=== PATIENT | male | born 1975 | race Caucasian/White ===

== ENCOUNTER 2016-10-12 21:00 | Emergency (ER) | payer SELFPAY ==
[~2016-10-12] VITALS: Ht 177.8 cm; Wt 122.5 kg
[~2016-10-12 21:00] MED LIST: ALBU2.5V14 NEB; BUDE10.2 IH; CLIN-44 PO; HYDR-2666 PO; HYDR2TAB13 PO; IBUP200T43 PO; LEVO150T5 PO; ONDA4TAB7 PO; PANT40TA5 PO; PROAIR HFA8.5 GM IH; TAMS0.4C97 PO; TRAM-29 PO
[2016-10-12 21:07] VITALS: BP 128/80
--- NOTE | 2016-10-12 21:36 | PHYS DOC ---
Past Medical History Past Medical History: GERD, Hypothyroid, Kidney Stone, TIA Additional Past Medical Histor: enlarged prostate,obesity, Past Surgical History: Tonsillectomy, Other Additional Past Surgical Histo: RIGHT KNEE SURGERY, TUMORS REMOVED FROM LEFT BICEP, LITHOTRIPSY Alcohol Use: Occasionally Drug Use: None Adult General Chief Complaint Chief Complaint: HEADACHE HPI HPI 41-year-old male presenting to the emergency department today with mild hyperglycemia. The patient is not diabetic and does not take medications for diabetes. He has his 's glucometer at home and checked his blood sugar. His blood sugar was 200 approximately 1/2-2 hours postprandially. Onset today. Location blood area duration intermittent. No alleviating factors. Review of systems is negative for chest pain shortness of breath nausea vomiting fevers chills. He does have a mild intermittent headache is similar to his previous headaches. He denies any other symptoms. All other review of systems is negative unless otherwise noted in history of present illness. Review of Systems Review of Systems SEE ABOVE. Allergies Allergies Allergies Coded Allergies Type Severity Reaction Last Updated Verified Sulfa (Sulfonamide Antibiotics) Allergy Intermediate "I turn bright red and burn all over" 01/12/15 Yes Physical Exam Physical Exam Constitutional: Well developed, well nourished, no acute distress, non-toxic appearance. HENT: Normocephalic, atraumatic, bilateral external ears normal, oropharynx moist, no oral exudates, nose normal. [] Eyes: PERRLA, EOMI, conjunctiva normal, no discharge. Neck: Normal range of motion, no tenderness, supple, no stridor. [] Cardiovascular:Heart rate regular rhythm, no murmur Lungs & Thorax: Bilateral breath sounds clear to auscultation Abdomen: Bowel sounds normal, soft, no tenderness, no masses, no pulsatile masses. Skin: Warm, dry, no erythema, no rash. [] Back: No tenderness, no CVA tenderness. [] Extremities: No tenderness, no cyanosis, no clubbing, ROM intact, no edema. Neurologic: Alert and oriented X 3, normal motor function, normal sensory function, no focal deficits noted. [] Psychologic: Affect normal, judgement normal, mood normal. Current Patient Data Vital Signs Vital Signs Date Time Temp Pulse Resp B/P Pulse Ox O2 Delivery O2 Flow Rate FiO2 10/12/16 21:07 97.7 98 18 128/80 99 Room Air 97.7 EKG EKG [] Radiology/Procedures Radiology/Procedures [] Course & Med Decision Making Course & Med Decision Making Pertinent Labs and Imaging studies reviewed. (See chart for details) [] 41-year-old male presenting with hyperglycemia. Vital signs afebrile mild tachycardia. Otherwise unremarkable. Pertinent physical exam normal physical exam. Nontender abdomen. Clear lungs. No focal neuro deficits. Blood glucose here is 140. If the patient's blood glucose was over 200 this to be consistent with a diagnosis of diabetes mellitus. I will refer the patient to our primary care physicians for chronic management of diabetes mellitus and continued evaluation workup and care over the next day or 2. Dragon Disclaimer Dragon Disclaimer This electronic medical record was generated, in whole or in part, using a voice recognition dictation system. Departure Departure Impression: Primary Impression: Elevated blood sugar Disposition: HOME, SELF-CARE Condition: STABLE Referrals: TAWANNA PALACIOS MD (PCP) JOSE RAMON REID MD Patient Instructions: Monitoring for Diabetes Additional Instructions: Thank you for allowing us to participate in your care today. Followup with your primary care physician in 1-2 days if your symptoms do not improve. If you do not have a primary care provider you can ask for a list of our primary care providers. Return to the emergency department you have any new or concerning findings. This should be evaluated by the primary care physician and any necessary consulting services for continued management within a few days after discharge. Return to emergency room if you have any new or concerning symptoms including but not limited to fever, chills, nausea, vomiting, intractable pain, any new rashes, chest pain, shortness of air, uncontrolled bleeding, difficulty breathing, and/or vision loss. GABE SANDERSON MD Oct 12, 2016 21:36
== END 2016-10-12 21:50 | disposition home or self-care (01) ==
LOC: ER 21:00
DX: R73.9 Hyperglycemia, unspecified (principal); R51 Headache; K21.9 Gastro-esophageal reflux disease without esophagitis; E03.9 Hypothyroidism, unspecified; E66.9 Obesity, unspecified; Z87.442 Personal history of urinary calculi; Z86.73 Personal history of transient ischemic attack (TIA), and cerebral infarction without residual deficits; Z68.38 Body mass index [BMI] 38.0-38.9, adult; Z88.2 Allergy status to sulfonamides
CPT/HCPCS: 82947; 99282

== ENCOUNTER 2017-02-24 12:34 | Emergency (ER) | payer SELFPAY ==
[~2017-02-24] VITALS: Ht 177.8 cm; Wt 122.5 kg
[~2017-02-24 12:34] MED LIST changes: -CLIN-44 PO; +CLIN150C14 PO; -HYDR-2666 PO; +HYDR-2758 PO; -HYDR2TAB13 PO; +HYDR2TAB31 PO; -TRAM-29 PO; +TRAM-48 PO
[2017-02-24] MEDS ORDERED: IV NORMAL SALINE 1000ML BAG 1,000 ML IV ONE (14:00)
[2017-02-24] MEDS ORDERED: BACITRACIN/POLYMYXIN B TOPICAL OINT 15GM TUBE. TP ONE (14:00)
--- NOTE | 2017-02-24 14:10 | RAD ---
2 view CXR: Clinical indications: Chest tightness today. Comparison: May 26, 2016. Findings: No acute lung infiltrate or pleural effusion or pulmonary edema or lung mass or pneumothorax is seen. The heart size, pulmonary vasculature, mediastinum and both duarte are unremarkable. The osseous structures appear intact. Impression: No acute radiographic abnormality is seen.
--- NOTE | 2017-02-24 14:30 | ED.ADGEN ---
Past Medical History Past Medical History: Diabetes-Type II, GERD, Hypothyroid, Kidney Stone, TIA Additional Past Medical Histor: enlarged prostate,obesity, Past Surgical History: Tonsillectomy, Other Additional Past Surgical Histo: RIGHT KNEE SURGERY, TUMORS REMOVED FROM LEFT BICEP, LITHOTRIPSY, Alcohol Use: Heavy Drug Use: Marijuana, Methamphetamine Adult General Chief Complaint Chief Complaint: OTHER COMPLAINTS HPI HPI Patient is a 42 year old man, history of type 2 diabetes mellitus, hypothyroidism, obesity, who presents to the emergency department with complaint of "worms crawling in my skin". Patient noted have excoriations across his forearms and chest, states he was using meth over the past several days has not slept in 2 days, has been scratching since that time. Patient is complaining of some tightness in his chest, states it feels like they're "are worms or something squeezing in there". He denies any nausea or vomiting, any focal weakness, numbness, tingling, other ingestions or exposures. States his tetanus is up-to-date. Tissue sugars generally run in the 120s. Review of Systems Review of Systems Constitutional: Denies fever or chills. [] "Feels like worms are in my skin". Eyes: Denies change in visual acuity. [] HENT: Denies nasal congestion or sore throat. [] Respiratory: Denies cough or shortness of breath. [] Cardiovascular: Denies chest pain or edema. [] GI: Denies abdominal pain, nausea, vomiting, bloody stools or diarrhea. [] : Denies dysuria. [] Musculoskeletal: Denies back pain or joint pain. [] Integument: Denies rash. [] Neurologic: Denies headache, focal weakness or sensory changes. [] Endocrine: Denies polyuria or polydipsia. [] Lymphatic: Denies swollen glands. [] Psychiatric: Denies depression or anxiety. [] Current Medications Current Medications Current Medications Medications (Trade) Dose Ordered Sig/Agustín Start Time Stop Time Status Last Admin Dose Admin Bacitracin/ Polymyxin B Sulfate (Polysporin) 1 katie 1X ONCE 02/24/17 14:00 02/24/17 14:01 DC 02/24/17 16:13 1 KATIE Cephalexin HCl (Keflex) 500 mg 1X ONCE 02/24/17 17:00 02/24/17 17:01 DC 02/24/17 16:52 500 MG Sodium Chloride 1,000 ml @ 1,000 mls/hr 1X ONCE 02/24/17 14:00 02/24/17 14:59 DC 02/24/17 14:29 1,000 MLS/HR Allergies Allergies Allergies Coded Allergies Type Severity Reaction Last Updated Verified Sulfa (Sulfonamide Antibiotics) Allergy Intermediate "I turn bright red and burn all over" 01/12/15 Yes Physical Exam Physical Exam Constitutional: Well developed, well nourished, slightly flushed in appearance, non-toxic appearance. [] HENT: Normocephalic, atraumatic, bilateral external ears normal, oropharynx moist, no oral exudates, nose normal. [] Eyes: PERRLA, EOMI, conjunctiva normal, no discharge. [] Neck: Normal range of motion, no tenderness, supple, no stridor. [] Cardiovascular:Heart rate regular rhythm, no murmur, S1, S2, no rubs or gallops. Lungs & Thorax: Bilateral breath sounds clear to auscultation , no wheezing, rhonchi, rales. No chest wall crepitus or tenderness. Patient with excoriations noted across his chest, no lesions are normality identified. [] Abdomen: Bowel sounds normal, soft, no tenderness, no masses, no pulsatile masses. [] Skin: Warm, dry, no erythema, no rash. Patient with excoriations across the forearm, chest and legs, which are self induced, patient is picking and scratching at the area during my examination. [] Back: No tenderness, no CVA tenderness. [] Extremities: No tenderness, no cyanosis, no clubbing, ROM intact, no edema. Negative Homans sign. [] Neurologic: Alert and oriented X 3, normal motor function, normal sensory function, no focal deficits noted. [] Psychologic: Affect normal, judgement normal, mood normal. [] Current Patient Data Vital Signs Vital Signs Date Time Temp Pulse Resp B/P (MAP) Pulse Ox O2 Delivery O2 Flow Rate FiO2 02/24/17 17:07 75 20 167/100 (122) 98 Room Air 02/24/17 13:01 97.8 97.8 Lab Values Laboratory Tests Test 02/24/17 14:25 02/24/17 15:05 White Blood Count 12.5 x10^3/uL (4.0-11.0) H Red Blood Count 4.42 x10^6/uL (4.30-5.70) Hemoglobin 14.8 g/dL (13.0-17.5) Hematocrit 43.3 % (39.0-53.0) Mean Corpuscular Volume 98 fL (79-100) Mean Corpuscular Hemoglobin 34 pg (25-35) Mean Corpuscular Hemoglobin Concent 34 g/dL (31-37) Red Cell Distribution Width 12.5 % (11.5-14.5) Platelet Count 232 x10^3/uL (140-400) Neutrophils (%) (Auto) 73 % (31-73) Lymphocytes (%) (Auto) 18 % (24-48) L Monocytes (%) (Auto) 7 % (0-9) Eosinophils (%) (Auto) 1 % (0-3) Basophils (%) (Auto) 1 % (0-3) Neutrophils # (Auto) 9.1 x10^3uL (1.8-7.7) H Lymphocytes # (Auto) 2.3 x10^3/uL (1.0-4.8) Monocytes # (Auto) 0.9 x10^3/uL (0.0-1.1) Eosinophils # (Auto) 0.2 x10^3/uL (0.0-0.7) Basophils # (Auto) 0.1 x10^3/uL (0.0-0.2) Sodium Level 143 mmol/L (136-145) Potassium Level 3.3 mmol/L (3.5-5.1) L Chloride Level 106 mmol/L (98-107) Carbon Dioxide Level 30 mmol/L (21-32) Anion Gap 7 (6-14) Blood Urea Nitrogen 10 mg/dL (8-26) Creatinine 0.9 mg/dL (0.7-1.3) Estimated GFR (Cockcroft-Gault) 92.1 BUN/Creatinine Ratio 11 (6-20) Glucose Level 87 mg/dL (70-99) Calcium Level 8.7 mg/dL (8.5-10.1) Total Bilirubin 0.8 mg/dL (0.2-1.0) Aspartate Amino Transferase (AST) 21 U/L (15-37) Alanine Aminotransferase (ALT) 40 U/L (16-63) Alkaline Phosphatase 85 U/L (46-116) Myoglobin 79 ng/mL (16-96) Troponin I Quantitative < 0.017 ng/mL (0.000-0.055) Total Protein 7.3 g/dL (6.4-8.2) Albumin 3.6 g/dL (3.4-5.0) Albumin/Globulin Ratio 1.0 (1.0-1.7) Urine Collection Type Unknown Urine Color Dk yellow Urine Clarity Clear Urine pH 5.5 Urine Specific [place] 1.025 Urine Protein Negative mg/dL (NEG-TRACE) Urine Glucose (UA) Negative mg/dL (NEG) Urine Ketones (Stick) Negative mg/dL (NEG) Urine Blood Negative (NEG) Urine Nitrite Negative (NEG) Urine Bilirubin Negative (NEG) Urine Urobilinogen Dipstick 0.2 mg/dL (0.2 mg/dL) Urine Leukocyte Esterase Negative (NEG) Urine RBC 0 /HPF (0-2) Urine WBC Occ /HPF (0-4) Urine Squamous Epithelial Cells Occ /LPF Urine Bacteria 0 /HPF (0-FEW) Urine Mucus Marked /LPF Urine Sperm Present /HPF Urine Opiates Screen Neg (NEG) Urine Methadone Screen Neg (NEG) Urine Barbiturates Neg (NEG) Urine Phencyclidine Screen Neg (NEG) Urine Amphetamine/Methamphetamine Pos (NEG) Urine Benzodiazepines Screen Neg (NEG) Urine Cocaine Screen Neg (NEG) Urine Cannabinoids Screen Pos (NEG) Urine Ethyl Alcohol Neg (NEG) Laboratory Tests 02/24/17 14:25 Laboratory Tests 02/24/17 14:25 EKG EKG [] Radiology/Procedures Radiology/Procedures [][facility] [address] [place] [address] IMAGING REPORT Signed PATIENT: SOCRATES GARDNER ACCOUNT: [id number] : 1975 LOCATION: ER AGE: 42 SEX: M EXAM STATUS: REG ER ORD. PHYSICIAN: VERENICE ROMERO DO REASON: chest tightness PROCEDURE: CHEST PA & LATERAL 2 view CXR: Clinical indications: Chest tightness today. Comparison: May 26, 2016. Findings: No acute lung infiltrate or pleural effusion or pulmonary edema or lung mass or pneumothorax is seen. The heart size, pulmonary vasculature, mediastinum and both duarte are unremarkable. The osseous structures appear intact. Impression: No acute radiographic abnormality is seen. DICTATED and SIGNED BY: FAZAL PERRIN MD DATE: 02/24/17 140 CC: VERENICE ROMERO DO; TAWANNA PALACIOS MD ~ Course & Med Decision Making Course & Med Decision Making Pertinent Labs and Imaging studies reviewed. (See chart for details) Discussed with patient that his skin findings are consistent with formication, due to methamphetamine abuse. As stated, patient states he has not slept for 2 days due to methamphetamine use. There is no evidence of foreign body or of infestation. Patient without evidence of abscess formation or induration, patient with multiple excoriations up and down his left arm, across his chest, with some granulation tissue that has formed. Patient has been scratching was over the past 2 days. Laboratory studies obtained did not reveal any acutely concerning findings, and reevaluation patient states he is feeling better, has been sleeping in the emergency department, IV fluids infused, he does have patient's at bedside, and vital signs are within normal limits. Ill effects of methamphetamine and other illicit substance abuse were discussed at bedside with patient, he does not have evidence of infection at this time, however as I am concerned he will continue to scratch and pick at his skin, he was written for Keflex to be taken 4 times daily for the next 4 days, first dose given in the ED without issue, given clear and detailed return instructions and precautions, and also given dressing materials to take home. Patient discharged home in stable condition with his with plan and precautions as above. Dragon Disclaimer Dragon Disclaimer This electronic medical record was generated, in whole or in part, using a voice recognition dictation system. Departure Impression: Primary Impression: Formication Additional Impressions: Amphetamine abuse Skin excoriation Disposition: HOME, SELF-CARE Condition: IMPROVED Scripts Cephalexin (KEFLEX) 500 Mg Capsule 500 MG PO QID, #16 CAP Prov: VERENICE ROMERO DO 02/24/17 Problem Qualifiers VERENICE ROMERO DO Feb 24, 2017 14:30
[2017-02-24 14:36] LABS: BASO # 0.1 x10^3/uL (0.0-0.2); BASO % 1 % (0-3); EOS % 1 % (0-3); HEMATOCRIT 43.3 % (39.0-53.0); HEMOGLOBIN 14.8 g/dL (13.0-17.5); LYMPH # 2.3 x10^3/uL (1.0-4.8); LYMPH % 18 % (24-48); MEAN CORPUSCULAR HEMOGLOBIN 34 pg (25-35); MEAN CORPUSCULAR HGB CONC 34 g/dL (31-37); MEAN CORPUSCULAR VOLUME 98 fL (79-100); MONO % 7 % (0-9); NEUT % 73 % (31-73); PLATELET COUNT 232 x10^3/uL (140-400); RED BLOOD COUNT 4.42 x10^6/uL (4.30-5.70); RED CELL DISTRIBUTION WIDTH 12.5 % (11.5-14.5); WHITE BLOOD COUNT 12.5 x10^3/uL (4.0-11.0)
[2017-02-24 15:16] LABS: BILIRUBIN,URINE NEGATIVE (NEG); GLUCOSE,URINE NEGATIVE (NEG); NITRITE,URINE NEGATIVE (NEG); PH,URINE 5.5; PROTEIN,URINE NEGATIVE (NEG-TRACE); UROBILINOGEN,URINE 0.2 mg/dL (0.2 mg/dL)
[2017-02-24 15:27] LABS: BARBITURATES NEG (NEG); BENZODIAZEPINES NEG (NEG); CANNABINOIDS POS (NEG); COCAINE NEG (NEG); METHADONE NEG (NEG); OPIATES NEG (NEG); PHENCYCLIDINE NEG (NEG)
[2017-02-24 15:28] LABS: BACTERIA,URINE 0 /HPF (0-FEW); RBC,URINE 0 /HPF (0-2); SPERM,URINE PRESENT /HPF; SQUAMOUS EPITHELIAL CELL,UR OCC /LPF; WBC,URINE OCC /HPF (0-4)
[2017-02-24 16:10] LABS: CALCIUM 8.7 mg/dL (8.5-10.1); CREATININE 0.9 mg/dL (0.7-1.3); GFR 92.1; POTASSIUM 3.3 mmol/L (3.5-5.1)
[2017-02-24 16:21] LABS: ALBUMIN 3.6 g/dL (3.4-5.0); TOTAL BILIRUBIN 0.8 mg/dL (0.2-1.0); TOTAL PROTEIN 7.3 g/dL (6.4-8.2)
[2017-02-24] MEDS ORDERED: CEPH-264 PO (16:58)
[2017-02-24] MEDS ORDERED: CEPHALEXIN 250 MG CAPSULE. PO ONE (17:00)
[2017-02-24 17:07] VITALS: BP 167/100
--- NOTE | 2017-02-25 09:18 | EKG ---
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
== END 2017-02-24 17:07 | disposition home or self-care (01) ==
LOC: ER 12:34
DX: R20.2 Paresthesia of skin (principal); F42.4 Excoriation (skin-picking) disorder; F12.10 Cannabis abuse, uncomplicated; R07.89 Other chest pain; E03.9 Hypothyroidism, unspecified; E11.9 Type 2 diabetes mellitus without complications; F15.10 Other stimulant abuse, uncomplicated; K21.9 Gastro-esophageal reflux disease without esophagitis; N40.0 Benign prostatic hyperplasia without lower urinary tract symptoms; Z86.73 Personal history of transient ischemic attack (TIA), and cerebral infarction without residual deficits; Z87.442 Personal history of urinary calculi
CPT/HCPCS: 36415; 71020; 80053; 80307; 81001; 83874; 84484; 85027; 93005; 96360; 99285; J7030; G0479

== ENCOUNTER 2019-04-26 22:50 | Emergency (ER) | payer SELFPAY ==
[~2019-04-26] VITALS: Ht 177.8 cm; Wt 122.5 kg
[~2019-04-26 22:50] MED LIST changes: +ALBU2.5V8 IH; +CEPH-264 PO; -HYDR-2758 PO; +HYDR-2761 PO; -IBUP200T43 PO; +IBUP200T44 PO; -PANT40TA5 PO; +PANT40TA77 PO; -PROAIR HFA8.5 GM IH
--- NOTE | 2019-04-26 23:06 | PHYS DOC ---
Past Medical History Past Medical History: Diabetes-Type II, GERD, Hypothyroid, Kidney Stone, TIA Additional Past Medical Histor: enlarged prostate,obesity, Past Surgical History: Tonsillectomy, Other Additional Past Surgical Histo: RIGHT KNEE SURGERY, TUMORS REMOVED FROM LEFT BICEP, LITHOTRIPSY, Alcohol Use: Heavy Drug Use: Marijuana, Methamphetamine Adult General Chief Complaint Chief Complaint: HYPERTENSION HPI HPI Patient is a 44 year old male who presents with states he just got home and decided to his blood pressure and it was 170s over 100s. Patient states he has known high blood pressure but does not take medication for it. Patient denies any pain or symptoms. Patient's blood pressure in the ED is 140s over 80s. Review of Systems Review of Systems Cardiovascular: High blood pressure All other systems were reviewed and found to be within normal limits, except as documented in this note. Allergies Allergies Allergies Coded Allergies Type Severity Reaction Last Updated Verified Sulfa (Sulfonamide Antibiotics) Allergy Intermediate "I turn bright red and burn all over" 01/12/15 Yes Physical Exam Physical Exam Constitutional: Well developed, well nourished, no acute distress, non-toxic appearance. [] HENT: Normocephalic, atraumatic, bilateral external ears normal, oropharynx moist, no oral exudates, nose normal. [] Eyes: PERRLA, EOMI, conjunctiva normal, no discharge. [] Neck: Normal range of motion, no tenderness, supple, no stridor. [] Cardiovascular:Heart rate regular rhythm, no murmur [] Lungs & Thorax: Bilateral breath sounds clear to auscultation [] Skin: Warm, dry, no erythema, no rash. [] Extremities: No tenderness, no cyanosis, no clubbing, ROM intact, no edema. [] Neurologic: Alert and oriented X 3, normal motor function, normal sensory function, no focal deficits noted. [] Psychologic: Affect normal, judgement normal, mood normal. Normal physical exam[] Current Patient Data Vital Signs Vital Signs Date Time Temp Pulse Resp B/P (MAP) Pulse Ox O2 Delivery O2 Flow Rate FiO2 04/26/19 23:21 97.8 82 20 148/90 (109) 98 Room Air 97.8 EKG EKG Sinus Rhythm and no STEMI[] Interpretation Time: [address] Francis Radiology/Procedures Radiology/Procedures [] Impressions: [facility] [address] [place] [address] IMAGING REPORT Signed PATIENT: SOCRATES GARDNER ACCOUNT: [id number] : 1975 LOCATION: ER AGE: 44 SEX: M EXAM STATUS: REG ER ORD. PHYSICIAN: LOPEZ AGUILAR APRN REASON: Hypertension PROCEDURE: PORTABLE CHEST 1V PORTABLE CHEST 1V 04/26/2019 11:00 PM INDICATION: Hypertension COMPARISON: 02/24/2017 TECHNIQUE: Portable frontal view of the chest is provided. FINDINGS: The cardiomediastinal silhouette is similar in appearance. Lungs are clear. There are no significant pleural effusions. There is no pulmonary vascular congestion. No pneumothorax. IMPRESSION: There is no acute cardiopulmonary process. Electronically signed by: Jonathan Huerta MD (04/26/2019 11:21 PM) [id number] DICTATED and SIGNED BY: JONATHAN HEURTA MD DATE: 04/26/192320 Course & Med Decision Making Course & Med Decision Making Patient is a 44 year old male who presents with states he just got home and decided to his blood pressure and it was 170s over 100s. Patient states he has known high blood pressure but does not take medication for it. Patient denies any pain or symptoms. Patient's blood pressure in the ED is 140s over 80s. Alert and oriented. Speaks in full clear sentences. Ambulatory with a steady gait. Patient denies any pain. Patient denies chest pain, shortness of air, headache, dizziness, syncope, numbness or tingling, weakness, abdominal pain, nausea, vomiting. Lungs are clear to auscultation all lobes. Patient states that he smokes marijuana and does meth. Patient states the last time he did meth was about 3 weeks ago. Patient states he also smokes cigars. Patient states he has a history of diabetes, GERD, hypothyroidism, TIA, kidney stone, marijuana use, methamphetamine use, alcohol use. PERRLA. Skin pink warm and dry. No extremity edema. Patient states that over the last 2 years off-and-on he will have exertional shortness of breath of which his doctors know about. Patient remains stable and not in a hypertensive emergency. Patient has no symptoms. Nursing staff is stuck the patient several times to try to get blood work able to get lab work. Patient states does not want to be stuck again. Since patient remains asymptomatic and has not had a hypertensive emergency in the ED patient will follow-up with his primary care provider. I have consulted with Dr Francis on this patient. Dragon Disclaimer Dragon Disclaimer This electronic medical record was generated, in whole or in part, using a voice recognition dictation system. Departure Departure Impression: Primary Impression: Hypertension Disposition: 01 HOME, SELF-CARE Condition: STABLE Referrals: TAWANNA PALACIOS MD (PCP) Patient Instructions: Hypertension Additional Instructions: FOLLOW UP WITH PRIMARY CARE SOON POSSIBLE. IF YOU BEGIN HAVING CHEST PAIN OR SOA RETURN TO THE ED. Problem Qualifiers Primary Impression: Hypertension Hypertension type: essential hypertension Qualified Codes: I10 - Essential (primary) hypertension LOPEZ AGUILAR APRN Apr 26, 2019 23:06
--- NOTE | 2019-04-26 23:24 | RAD ---
PORTABLE CHEST 1V 04/26/2019 11:00 PM INDICATION: Hypertension COMPARISON: 02/24/2017 TECHNIQUE: Portable frontal view of the chest is provided. FINDINGS: The cardiomediastinal silhouette is similar in appearance. Lungs are clear. There are no significant pleural effusions. There is no pulmonary vascular congestion. No pneumothorax. IMPRESSION: There is no acute cardiopulmonary process. Electronically signed by: Yesica Arriaga MD (04/26/2019 11:21 PM) [id number]
[2019-04-27] VITALS: BP 150/60
--- NOTE | 2019-04-27 11:31 | EKG ---
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
== END 2019-04-27 00:19 | disposition home or self-care (01) ==
LOC: ER 22:50
DX: I10 Essential (primary) hypertension (principal); E11.9 Type 2 diabetes mellitus without complications; K21.9 Gastro-esophageal reflux disease without esophagitis; E03.9 Hypothyroidism, unspecified; F10.20 Alcohol dependence, uncomplicated; Y90.9 Presence of alcohol in blood, level not specified; E66.9 Obesity, unspecified; Z68.38 Body mass index [BMI] 38.0-38.9, adult; Z87.442 Personal history of urinary calculi; Z90.89 Acquired absence of other organs; Z88.2 Allergy status to sulfonamides
CPT/HCPCS: 71045; 93005; 99284

== ENCOUNTER 2019-06-27 10:07 | Emergency (ER) | payer SELFPAY ==
[~2019-06-27] VITALS: Ht 175.3 cm; Wt 136.1 kg
--- NOTE | 2019-06-27 10:28 | PHYS DOC ---
Past Medical History Past Medical History: Diabetes-Type II, GERD, Hypothyroid, Kidney Stone, Schizophrenia, TIA Additional Past Medical Histor: enlarged prostate,obesity, (NICKY ROBERTSON APRN) Past Surgical History: Tonsillectomy, Other Additional Past Surgical Histo: RIGHT KNEE SURGERY, TUMORS REMOVED FROM LEFT BICEP, LITHOTRIPSY, (NICKY ROBERTSON APRN) Alcohol Use: Heavy Drug Use: Marijuana, Methamphetamine (NICKY ROBERTSON APRN) Attending Signature I have participated in the care of this patient and I have reviewed and agree with all pertinent clinical information above including history, exam, and recommendations. (RADHA BLANKENSHIP MD) Adult General Chief Complaint Chief Complaint: LACERATION/AVULSION HPI HPI Patient is a 44 year old male who presents to the emergency department with complaints of a laceration to his left chest. Patient states he was trying to kill a bug with a knife when he accidentally fell forward and stabbed himself in the chest. Patient denies any shortness of breath, palpitations, suicidal ideations, or hemoptysis. He denies any pain at this time. Patient is unsure when his last tetanus shot was. (NICKY ROBERTSON APRN) Review of Systems Review of Systems Constitutional: Denies fever or chills [] Eyes: Denies redness, or eye pain [] HENT: Denies nasal congestion or sore throat [] Respiratory: Denies cough or shortness of breath [] Cardiovascular: No additional information not addressed in HPI [] GI: Denies abdominal pain, nausea, vomiting, or diarrhea [] Musculoskeletal: Denies back pain or joint pain [] Integument: see HPI Neurologic: Denies headache Complete systems were reviewed and found to be within normal limits, except as documented in this note. (NICKY ROBERTSON APRN) Current Medications Current Medications Current Medications Medications (Trade) Dose Ordered Sig/Agustín Start Time Stop Time Status Last Admin Dose Admin Diphtheria/ Tetanus/Acell Pertussis (Boostrix) 0.5 ml ONCE ONCE 06/27/19 10:30 06/27/19 10:31 DC 06/27/19 10:49 0.5 ML Lidocaine HCl (Xylocaine-Mpf 1% 2ml Vial) 4 ml 1X ONCE 06/27/19 10:30 06/27/19 10:31 DC 06/27/19 10:48 4 ML Neomycin/ Polymyxin/ Bacitracin (Triple Antibiotic Ointment) 1 pkt 1X ONCE 06/27/19 10:30 06/27/19 10:31 DC 06/27/19 10:49 1 PKT (RADHA BLANKENSHIP MD) Allergies Allergies Allergies Coded Allergies Type Severity Reaction Last Updated Verified Sulfa (Sulfonamide Antibiotics) Allergy Intermediate "I turn bright red and burn all over" 01/12/15 Yes (RADHA BLANKENSHIP MD) Physical Exam Physical Exam Constitutional: Well developed, well nourished, no acute distress, non-toxic appearance, obese. [] HENT: Normocephalic, atraumatic, bilateral external ears normal, nose normal. [] Eyes: PERRLA, EOMI, conjunctiva normal, no discharge. [] Neck: Normal range of motion, no tenderness, supple, no stridor. [] Cardiovascular:Heart rate regular rhythm, no murmur [] Lungs & Thorax: Bilateral breath sounds clear to auscultation, regular rate, no retractions [] Skin: Warm, dry, no erythema, no rash; 1 cm laceration noted to left chest, no active bleeding. [] Back: No tenderness Extremities: No tenderness, no cyanosis, no clubbing, ROM intact, no edema. [] Neurologic: Alert and oriented X 3, no focal deficits noted. [] Psychologic: Affect normal, judgement normal, mood normal. [] (NICKY ROBERTSON APRN) Current Patient Data Vital Signs Vital Signs Date Time Temp Pulse Resp B/P (MAP) Pulse Ox O2 Delivery O2 Flow Rate FiO2 06/27/19 11:30 86 18 133/80 (97) 97 Room Air 06/27/19 10:14 97.9 97.9 (RADHA BLANKENSHIP MD) EKG EKG [] (NICKY ROBERTSON APRN) Radiology/Procedures Radiology/Procedures PROCEDURE: CHEST AP ONLY CHEST AP ONLY Clinical Indication: Left chest laceration Comparison: 04/26/2019 Portable Chest X-ray Exam. Findings: Portable upright frontal view chest was obtained. The cardiomediastinal silhouette is normal. Lungs are clear. There is no pneumothorax. No pleural effusion is appreciated. No acute bone abnormality. IMPRESSION: No acute cardiopulmonary process. Laceration Repair by me: Anesthesia: 1% lidocaine locally Location: left chest Tendon/Joint/Nerves: No injury Foreign body: None detected after copious irrigation and exploration with 100 ml of NS Technique: 2 Simple Interrupted Sutures with 4-0 Ethilon Complexity: No subcutaneous sutures/mucosal repair/edge excision Post Closure Length: 2 cm The wound was explored with a sterile cotton swab it was approximately 2 cm deep Patient's bleeding was easily controlled in the department and there is no indication of anemia. No evidence of compartment syndrome, neurologic injury, vascular injury, open joint, tendon laceration, or foreign body. Patient is appropriate for outpatient follow up. Scar minimization instructions given. [] (NICKY ROBERTSON APRN) Course & Med Decision Making Course & Med Decision Making Pertinent Labs and Imaging studies reviewed. (See chart for details) [] (NICKY ROBERTSON APRN) Dragon Disclaimer Dragon Disclaimer This electronic medical record was generated, in whole or in part, using a voice recognition dictation system. (NICKY ROBERTSON APRN) Departure Departure Impression: Primary Impression: Laceration of left chest wall Disposition: HOME, SELF-CARE Condition: STABLE Referrals: NO PCP (PCP) Patient Instructions: Laceration Care, Adult, [id number], VIS, Tetanus, Diphtheria (Td); Tetanus, Diphtheria, Pertussis (Tdap) - CDC Additional Instructions: Keep the area clean and dry. You may take Tylenol or ibuprofen as needed for pain. Keep the dressing that was placed today on for 24 hours then change the dressing twice a day and apply antibiotic ointment to the area. Follow-up with your primary care doctor, or return to the emergency room in 10-14 days to have the sutures removed, sooner if you develop signs of infection including: redness, warmth, drainage, or a fever. NICKY ROBERTSON APRN Jun 27, 2019 10:28 RADHA BLANKENSHIP MD Jun 28, 2019 18:59
[2019-06-27] MEDS ORDERED: NEOMY/BACITR/POLYMYXIN OINT PACKET. TP ONE (10:30)
[2019-06-27] MEDS ORDERED: LIDOCAINE 1% PF 2 ML VIAL. INJ ONE (10:30)
[2019-06-27] MEDS ORDERED: DIPHTH,PERTUSS(ACELL),TET TOX 0.5 ML DISP.SYRIN. VAX IM ONE (10:30)
[2019-06-27 11:30] VITALS: BP 133/80
== END 2019-06-27 12:12 | disposition home or self-care (01) ==
LOC: ER 10:07
DX: S21.112A Laceration without foreign body of left front wall of thorax without penetration into thoracic cavity, initial encounter (principal); E11.9 Type 2 diabetes mellitus without complications; K21.9 Gastro-esophageal reflux disease without esophagitis; E03.9 Hypothyroidism, unspecified; F20.9 Schizophrenia, unspecified; Z86.73 Personal history of transient ischemic attack (TIA), and cerebral infarction without residual deficits; E66.9 Obesity, unspecified; Z68.41 Body mass index [BMI] 40.0-44.9, adult; Z90.89 Acquired absence of other organs; Z98.890 Other specified postprocedural states; F10.20 Alcohol dependence, uncomplicated; F12.90 Cannabis use, unspecified, uncomplicated; Y90.9 Presence of alcohol in blood, level not specified; Z88.2 Allergy status to sulfonamides; W26.0XXA Contact with knife, initial encounter; Y93.89 Activity, other specified; Y92.89 Other specified places as the place of occurrence of the external cause; Y99.8 Other external cause status
CPT/HCPCS: 12001; 71045; 90471; 90715; 99283

== ENCOUNTER 2021-09-16 12:07 | Emergency (ER) | payer OTHER ==
[~2021-09-16] VITALS: Ht 177.8 cm; Wt 130.0 kg
[~2021-09-16 12:07] MED LIST changes: -CLIN150C14 PO; +CLIN150C16 PO
[2021-09-16 12:08] VITALS: BP 130/88
[2021-09-16] MEDS ORDERED: DIPHTH,PERTUSS(ACELL),TET TOX 0.5 ML DISP.SYRIN. VAX IM ONE (12:15)
[2021-09-16] MEDS ORDERED: LIDOCAINE 1%/EPI 1:100,000 20 ML VIAL. INJ ONE (12:15)
--- NOTE | 2021-09-16 12:35 | PHYS DOC ---
Past Medical History Past Medical History: Diabetes-Type II, GERD, Hypothyroid, Kidney Stone, Schizophrenia, TIA Additional Past Medical Histor: enlarged prostate,obesity, Past Surgical History: Tonsillectomy, Other Additional Past Surgical Histo: RIGHT KNEE SURGERY, TUMORS REMOVED FROM LEFT BICEP, LITHOTRIPSY, Smoking Status: Current Every Day Smoker Alcohol Use: Heavy Drug Use: Marijuana, Methamphetamine General Adult EDM: Chief Complaint: LACERATION/AVULSION HPI: HPI: Patient is a 46 year old male who presents with states he was at work and he was walking and slipped on ice and fell striking his left elbow which then caused a laceration to the elbow itself. Patient does not know when his last tetanus shot was. Rates his pain a 5 out of 10. Denies hitting his head, dizziness, chest pain, shortness of air, or tingling, focal weakness, joint weakness or other extremity pain or body pain. Patient has a history of meth use, GERD, hypothyroidism, kidney stones with lithotripsy, schizophrenia, TIA, diabetes, enlarged prostate, smoking, tonsillectomy. Review of Systems: Review of Systems: Constitutional: Denies fever or chills. [] Eyes: Denies change in visual acuity. [] HENT: Denies nasal congestion or sore throat. [] Respiratory: Denies cough or shortness of breath. [] Cardiovascular: Denies chest pain or edema. [] GI: Denies abdominal pain, nausea, vomiting, bloody stools or diarrhea. [] : Denies dysuria. [] Musculoskeletal: Denies back pain or joint pain. + Left elbow pain [] Integument: Denies rash. + Left elbow laceration Endocrine: Denies polyuria or polydipsia. [] Lymphatic: Denies swollen glands. [] Psychiatric: Denies depression or anxiety. [] Heart Score: C/O Chest Pain: No Current Medications: Current Medications Medications (Trade) Dose Ordered Sig/Agustín Start Time Stop Time Status Last Admin Dose Admin Diphtheria/ Tetanus/Acell Pertussis (Boostrix) 0.5 ml ONCE ONCE 09/16/21 12:15 09/16/21 12:21 DC Lidocaine/ Epinephrine (LIDOCAINE 1%-EPI 1:100,000 Multi-Dose) 20 ml 1X ONCE 09/16/21 12:15 09/16/21 12:21 DC Allergies: Allergies: Allergies Coded Allergies Type Severity Reaction Last Updated Verified Sulfa (Sulfonamide Antibiotics) Allergy Intermediate "I turn bright red and burn all over" 01/12/15 Yes Physical Exam: PE: Constitutional: Well developed, well nourished, no acute distress, non-toxic appearance. [] HENT: Normocephalic, atraumatic, bilateral external ears normal, oropharynx moist, no oral exudates, nose normal. [] Eyes: PERRLA, EOMI, conjunctiva normal, no discharge. [] Neck: Normal range of motion, no tenderness, supple, no stridor. [] Cardiovascular:Heart rate regular rhythm, no murmur [] Lungs & Thorax: Bilateral breath sounds clear to auscultation [] Abdomen: Bowel sounds normal, soft, no tenderness, no masses, no pulsatile masses. [] Skin: Warm, dry, no erythema, no rash. Left elbow laceration. [] Back: No tenderness, no CVA tenderness. [] Extremities: No tenderness, no cyanosis, no clubbing, ROM intact, no edema. [] Neurologic: Alert and oriented X 3, normal motor function, normal sensory function, no focal deficits noted. [] Psychologic: Affect normal, judgement normal, mood normal. [] Current Patient Data: Vital Signs: Vital Signs Date Time Temp Pulse Resp B/P (MAP) Pulse Ox O2 Delivery O2 Flow Rate FiO2 09/16/21 12:08 97.6 95 18 130/88 (102) 97 Room Air 97.6 EKG: EKG: [] Radiology/Procedures: Radiology/Procedures: [] Impression: [facility] [address] [place] [address] IMAGING REPORT Signed PATIENT: SOCRATES GARDNER ACCOUNT: [id number] : 1975 LOCATION: ER AGE: 46 SEX: M EXAM STATUS: PRE ER ORD. PHYSICIAN: LOPEZ AGUILAR APRN REASON: fall, hit elbow, laceration PROCEDURE: ELBOW LEFT 3V EXAM: Left elbow, 4 views. HISTORY: Fall. Laceration. Pain. COMPARISON: None. FINDINGS: 4 views of the left elbow are obtained. There is no acute fracture, dislocation or subluxation. There is a small benign osseous excrescence along the medial epicondyles. There is no elbow effusion. There is a soft tissue defect within the posterior proximal forearm. No foreign body is seen. IMPRESSION: Soft tissue defect within the posterior proximal forearm, consistent with a reported laceration. No fracture or foreign body is seen. Electronically signed by: Millie Hernandez MD (09/16/2021 1:04 PM) [id number] DICTATED and SIGNED BY: MILLIE HERNANDEZ MD DATE: 09/16/21 [id number] Course & Med Decision Making: Course & Med Decision Making Pertinent Labs and Imaging studies reviewed. (See chart for details) See HPI. Alert and oriented x4. Ambulatory steady gait. Speaks in full clear sentences. Full range of motion of the left elbow. No tenderness exam. No laxity to the joint. Radial pulse strong present. No tenderness to the extremity at all. No focal bony spinal tenderness. Full range of motion of his neck. Patient denies any other injuries from the fall. She was given tetanus shot in the ED. After laceration repair patient it is explained to the patient that he needs to try to keep the arm straight as possible. I will give him 2 days off from work. He is educated that he runs the risk of reopening his laceration due to bending at the elbow. Laceration repair Location: Left elbow. 3 inches Local anesthesia: Lidocaine with epi Interrupted sutures/Internal sutures: 9 sutures Nerve/ligament/muscle damage: None Cleaning and irrigation: Chlorhexidine and saline The appropriate timeout was taken. The area was prepped and draped in the usual sterile fashion. The wound was copiously irrigated with normal saline and chl orhexidine. Patient tolerated well without complication. Dressing was applied to the area follow-up education is given to observe for signs and symptoms of infection, bleeding and to follow-up promptly if these occur. Patient can return in 48 hours for a wound recheck. Sutures to be removed in 7 to 10 days. Dragon Disclaimer: Chiquita Disclaimer: This electronic medical record was generated, in whole or in part, using a voice recognition dictation system. Departure Departure Impression: Primary Impression: Laceration of elbow Qualified Codes: S51.012A - Laceration without foreign body of left elbow, initial encounter Disposition: HOME / SELF CARE / HOMELESS Condition: STABLE Referrals: NO PCP (PCP) Patient Instructions: Laceration Care, Adult, Sutured Wound Care Additional Instructions: Return in 10 days for suture removal. Try not to bend the extremity as the sutures could break through in your laceration can reopen. Watch for signs of infection such as redness, drainage. Keep it dry and clean. He can put antibiotic ointment over the area. Take the antibiotic as prescribed and with food. Scripts Cephalexin (KEFLEX) 500 Mg Capsule 1 CAP PO TID, #30 CAP Prov: LOPEZ AGUILAR APRN 09/16/21 LOPEZ AGUILAR APRN Sep 16, 2021 12:35
--- NOTE | 2021-09-16 13:06 | RAD ---
EXAM: Left elbow, 4 views. HISTORY: Fall. Laceration. Pain. COMPARISON: None. FINDINGS: 4 views of the left elbow are obtained. There is no acute fracture, dislocation or subluxat ion. There is a small benign osseous excrescence along the medial epicondyles. There is no elbow effu darren. There is a soft tissue defect within the posterior proximal forearm. No foreign body is seen. IMPRESSION: Soft tissue defect within the posterior proximal forearm, consistent with a reported lace ration. No fracture or foreign body is seen. Electronically signed by: Millie Hernandez MD (09/16/2021 1:04 PM) [id number]
[2021-09-16] MEDS ORDERED: CEPH500C PO (13:09)
== END 2021-09-16 14:05 | disposition home or self-care (01) ==
LOC: ER 12:07
DX: S51.012A Laceration without foreign body of left elbow, initial encounter (principal); E11.9 Type 2 diabetes mellitus without complications; K21.9 Gastro-esophageal reflux disease without esophagitis; E03.9 Hypothyroidism, unspecified; F20.9 Schizophrenia, unspecified; Z86.73 Personal history of transient ischemic attack (TIA), and cerebral infarction without residual deficits; F17.200 Nicotine dependence, unspecified, uncomplicated; Z88.2 Allergy status to sulfonamides; W00.0XXA Fall on same level due to ice and snow, initial encounter; Y92.89 Other specified places as the place of occurrence of the external cause; Y93.01 Activity, walking, marching and hiking; Y99.8 Other external cause status
CPT/HCPCS: 12015; 73080; 90471; 90715; 99283; J3490

== ENCOUNTER 2021-09-28 17:44 | Emergency (ER) | payer OTHER ==
[~2021-09-28] VITALS: Ht 177.8 cm; Wt 126.9 kg
[~2021-09-28 17:44] MED LIST changes: +CEPH500C PO
[2021-09-28 18:14] VITALS: BP 142/78
--- NOTE | 2021-09-28 18:44 | PHYS DOC ---
Past Medical History Past Medical History: Diabetes-Type II, GERD, Hypothyroid, Kidney Stone, Schizophrenia, TIA Additional Past Medical Histor: enlarged prostate,obesity, KIDNEY STONES Past Surgical History: Tonsillectomy, Other Additional Past Surgical Histo: RIGHT KNEE SURGERY, TUMORS REMOVED FROM LEFT BICEP, LITHOTRIPSY, Smoking Status: Current Every Day Smoker Alcohol Use: Heavy Drug Use: Marijuana, Methamphetamine General Adult EDM: Chief Complaint: SUTURE/STAPLE REMOVAL HPI: HPI: Patient is a 46-year-old male who presents to the ED today for suture removal from the left elbow, for sutures have been in for 12 days. Denies any issues with the wound healing Review of Systems: Review of Systems: Constitutional: Denies fever or chills. [] Musculoskeletal: Denies back pain or joint pain. [] Integument: Left olecranon with well approximated laceration site with 8 sutures, no signs of infection. Neurologic: Denies headache, focal weakness or sensory changes. [] Psychiatric: Denies depression or anxiety. [] Heart Score: C/O Chest Pain: N/A Risk Factors: Risk Factors: DM, Current or recent (<one month) smoker, HTN, HLP, family history of CAD, obesity. Risk Scores: Score 0 - 3: 2.5% MACE over next 6 weeks - Discharge Home Score 4 - 6: 20.3% MACE over next 6 weeks - Admit for Clinical Observation Score 7 - 10: 72.7% MACE over next 6 weeks - Early Invasive Strategies Allergies: Allergies: Allergies Coded Allergies Type Severity Reaction Last Updated Verified Sulfa (Sulfonamide Antibiotics) Allergy Intermediate "I turn bright red and burn all over" 01/12/15 Yes Physical Exam: PE: Constitutional: Well developed, well nourished, no acute distress, non-toxic appearance. [] HENT: Normocephalic, atraumatic, bilateral external ears normal, oropharynx moist, no oral exudates, nose normal. [] Eyes: PERRLA, EOMI, conjunctiva normal, no discharge. [] Neck: Normal range of motion, no tenderness, supple, no stridor. [] Cardiovascular:Heart rate regular rhythm, no murmur [] Lungs & Thorax: Bilateral breath sounds clear to auscultation [] Abdomen: Bowel sounds normal, soft, no tenderness, no masses, no pulsatile masses. [] Skin: Warm, dry, no erythema, no rash. [] Back: No tenderness, no CVA tenderness. [] Extremities: No tenderness, no cyanosis, no clubbing, ROM intact, no edema. [] Neurologic: Alert and oriented X 3, normal motor function, normal sensory function, no focal deficits noted. [] Psychologic: Affect normal, judgement normal, mood normal. [] Current Patient Data: Vital Signs: Vital Signs Date Time Temp Pulse Resp B/P (MAP) Pulse Ox O2 Delivery O2 Flow Rate FiO2 09/28/21 18:14 97.9 97 20 142/78 (99) 94 Room Air 97.9 EKG: EKG: [] Radiology/Procedures: Radiology/Procedures: [] Course & Med Decision Making: Course & Med Decision Making Pertinent Labs and Imaging studies reviewed. (See chart for details) Patient stitches were removed by me from the left elbow. No signs of infection to the elbow. Return precautions provided. Dragon Disclaimer: Dragon Disclaimer: This electronic medical record was generated, in whole or in part, using a voice recognition dictation system. Departure Departure Impression: Primary Impression: Encounter for removal of sutures Disposition: HOME / SELF CARE / HOMELESS Condition: STABLE Referrals: NO PCP (PCP) follow upwith your doctor as needed Patient Instructions: Suture Removal Additional Instructions: You had stitches removed from your left elbow. Keep the area clean and dry, the Steri-Strips will fall off on their own. Follow-up with your doctor as needed APURVA BENNETT APRN Sep 28, 2021 18:43
== END 2021-09-28 18:55 | disposition home or self-care (01) ==
LOC: ER 17:44
DX: S51.012D Laceration without foreign body of left elbow, subsequent encounter (principal); E11.9 Type 2 diabetes mellitus without complications; K21.9 Gastro-esophageal reflux disease without esophagitis; E03.9 Hypothyroidism, unspecified; F20.9 Schizophrenia, unspecified; Z86.73 Personal history of transient ischemic attack (TIA), and cerebral infarction without residual deficits; F17.200 Nicotine dependence, unspecified, uncomplicated; Z87.442 Personal history of urinary calculi; Z88.2 Allergy status to sulfonamides; X58.XXXD Exposure to other specified factors, subsequent encounter
CPT/HCPCS: 99281